=== PATIENT | male | born 1985 | race Caucasian/White ===

== ENCOUNTER 2018-11-26 20:33 | Emergency (ER) | payer OTHER ==
[~2018-11-26] VITALS: Ht 172.7 cm; Wt 82.3 kg
[2018-11-26] MEDS ORDERED: NORCO, ANEXSIA 5/325MG TABLET (HYDROcodone/ACETAMINOPHEN) PO ONE (22:00)
[2018-11-26] MEDS ORDERED: LIDOCAINE 2% MDV 20 ML VIAL SC ONE (22:00)
[2018-11-26] MEDS ORDERED: DERMABOND TOPICAL SKIN ADHESIVE TOP ONE (22:45)
[2018-11-26 23:15] VITALS: BP 131/92
== END 2018-11-26 23:17 | disposition home or self-care (01) ==
LOC: M ED 20:33
DX: S61.011A Laceration without foreign body of right thumb without damage to nail, initial encounter (principal); W26.8XXA Contact with other sharp object(s), not elsewhere classified, initial encounter; Y92.018 Other place in single-family (private) house as the place of occurrence of the external cause; K31.1 Adult hypertrophic pyloric stenosis

== ENCOUNTER → 2019-07-29 | Outpatient (REF) | payer OTHER ==
[~2019-07-29] MED LIST: AMOX500C PO; COLC1TAB13 PO; IBUP40TA PO; PRIL20TA2 PO; RISATAB3 PO
== END ==
LOC: M SFHCLERA 09:34
PROVIDERS: ATTEND Nurse Practitioner Family
DX: J02.9 Acute pharyngitis, unspecified (principal)

== ENCOUNTER → 2019-09-01 | Outpatient (REF) | payer OTHER | LOC: M SFHCLERA 15:03 | PROVIDERS: ATTEND Physician Assistant | DX: R50.9 Fever, unspecified (principal) ==

== ENCOUNTER 2019-09-02 03:00 | Inpatient (IN) | payer OTHER ==
[~2019-09-02] VITALS: Ht 172.7 cm; Wt 83.0 kg
[2019-09-02] MEDS ORDERED: GI COCKTAIL 50ML BTL(HYOSCYAMINE/MAALOX/LIDOCAINE VISCOUS)(1:3:1) PO ONE (03:45)
[2019-09-02] MEDS ORDERED: KETOROLAC 30 MG/ML VIAL (J1885) IV ONE (04:30)
[2019-09-02] MEDS ORDERED: NS 1,000 ML IV ONE (04:30)
[2019-09-02 04:42] LABS: BLOOD UREA NITROGEN 12 MG/DL (7-18); CALCIUM LEVEL 8.8 MG/DL (8.5-10.1); CARBON DIOXIDE LEVEL 23 MEQ/L (21-32); CHLORIDE LEVEL 105 MEQ/L (98-107); CK-MB VALUE MASS 5.6 NG/ML (<3.6); CPK CREATINE PHOSPHOKINASE 102 U/L (39-308); CREATININE FOR GFR 1.09 MG/DL (0.70-1.30); GLOMERULAR FILTRATION RATE > 60.0 (>60); GLUCOSE, FASTING 107 MG/DL (70-100); MB/CK RELATIVE INDEX 5.49 (< OR =4); POTASSIUM SERUM 3.3 MEQ/L (3.5-5.1); SODIUM LEVEL 139 MEQ/L (136-145); TROPONIN I 0.77 NG/ML (< 0.10)
[2019-09-02 04:52] LABS: BASO # 0.1 10^3/uL (0.0-0.2); BASO % 0.6 % (0.0-1.0); EOS # 0.1 10^3/uL (0.0-0.5); EOS % 0.9 % (0.0-3.0); HEMATOCRIT 44.5 % (42.0-52.0); HEMOGLOBIN 16.5 g/dl (13.5-17.5); LYMPH # 3.2 10^3/uL (1.5-5.0); MEAN CORPUSCULAR HEMOGLOBIN 31.7 pg (27.0-33.0); MEAN CORPUSCULAR HGB CONC 37.1 g/dl (32.0-36.5); MEAN CORPUSCULAR VOLUME 85.4 fl (80.0-96.0); MONO % 11.5 % (0.0-5.0); NEUTROPHILS # 4.2 10^3/uL (1.5-8.5); NEUTROPHILS % 48.6 % (36.0-66.0); PLATELET COUNT, AUTOMATED 196 10^3/uL (150-450); RED BLOOD COUNT 5.21 10^6/uL (4.30-6.10); WHITE BLOOD COUNT 8.5 10^3/uL (4.0-10.0)
[2019-09-02 05:14] LABS: C REACTIVE PROTEIN QUANTITATIV 9.56 MG/DL (0.00-0.30)
[2019-09-02 05:24] LABS: ERYTHROCYTE SEDIMENTATION RATE 27 mm/hr (0-15)
[2019-09-02] MEDS ORDERED: ISOVUE-370 76% 100ML VIAL (Q9967) As Ordered ONE (06:02)
--- NOTE | 2019-09-02 06:38 | REPVR ---
PROCEDURE INFORMATION: Exam: CT Angiography Chest With Contrast Exam date and time: 09/02/2019 5:56 AM Clinical history: 33 years old, male; Chest pain; Type not specified; Additional info: Chest pain, eval for pericardial effusion TECHNIQUE: Imaging protocol: Computed tomographic angiography of the chest with intravenous contrast. 3D rendering: MIP reconstructed images were created and reviewed. Radiation optimization: All CT scans at this facility use at least one of these dose optimization techniques: automated exposure control; mA and/or kV adjustment per patient size (includes targeted exams where dose is matched to clinical indication); or iterative reconstruction. Contrast material: ISO; Contrast volume: 75 ml; Contrast route: AC; COMPARISON: CR Chest, 2 view PA, Lat 09/02/2019 4:37 AM FINDINGS: Pulmonary arteries: Normal. No pulmonary emboli. Aorta: Unremarkable. No aortic aneurysm. No aortic dissection. Lungs: Calcified granuloma in the right lower lobe. Mild bibasilar dependent atelectasis. Pleural space: Unremarkable. No pneumothorax. No pleural effusion. Heart: Unremarkable. No cardiomegaly. No pericardial effusion. Lymph nodes: Calcified right hilar lymph nodes. Bones/joints: Unremarkable. No acute fracture. Soft tissues: Unremarkable. IMPRESSION: No acute pulmonary embolic disease or thoracic aortic dissection. No significant pericardial effusion. Evidence of prior granulomatous disease. Electronically signed by: Steve Meng On 09/02/2019 06:37:57 AM
--- NOTE | 2019-09-02 07:31 | ECGEPIP ---
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
--- NOTE | 2019-09-02 08:21 | REP ---
Chest x-ray: Two views. History: Chest pain . Comparison study: No comparison study. . Findings: The lungs are well inflated and free of infiltrate. The pleural angles are sharp. The heart size is normal. Pulmonary vasculature is not increased. No significant bony abnormality is seen. Monitoring electrodes are seen. Impression: Negative chest x-ray. Electronically Signed by Armando Thayer MD 09/02/2019 08:13 A
[2019-09-02 09:21] LABS: CK-MB VALUE MASS 44.4 NG/ML (<3.6); MB/CK RELATIVE INDEX 10.52 (< OR =4); TROPONIN I 12.1 NG/ML (< 0.10)
--- NOTE | 2019-09-02 14:29 | HPE ---
DATE OF ADMISSION: 09/02/2019 PRIMARY CARE PHYSICIAN: [facility] ATTENDING PHYSICIAN: Hospitalist Group CHIEF COMPLAINT: Chest pain, presumed pericardial/myocarditis. HISTORY: Glen Cuadra is a 33-year-old in usually very good health. He had an upper respiratory infection (URI) and went to [facility] yesterday for sore throat. He had a negative Strep screen and a diagnosis of viral illness. Today, he had pleuritic chest discomfort in his anterior chest that was well localized to the right sternal border that changed with body position. He came to the emergency room. CT angiogram was negative for pulmonary embolism or dissection. Electrocardiogram shows repolarization in multiple leads. He received a dose of Toradol with resolution of his pain and is being admitted with a presumptive diagnosis of pericarditis with suspected myocarditis. His CK and his Troponin took a significant increase over a period of time. The Troponin was 0.7 on arrival to the emergency room (ER) and is up to 12.1 now with a rise in the CK. The case has been discussed between the emergency room physician and Dr. Guerrero who feels the patient should be observed overnight with serial enzymes, echocardiogram and cardiology consultation for presumed pericardial/myocarditis. We do not think this is ischemic related. PAST MEDICAL HISTORY: Essentially benign. He has seasonal allergies. SOCIAL HISTORY: He is . Nonsmoker. No alcohol. 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 FAMILY HISTORY: Negative for any cardiovascular disease. MEDICATIONS: Over the counter allergy medications. ALLERGIES: None to any medications. REVIEW OF SYSTEMS: No exertional chest pain, palpitations, fever. He had a sore throat and head cold yesterday. No epistaxis, rectal bleeding, or urinary bleeding. PHYSICAL EXAMINATION: Vital signs per flow sheet. General Appearance: He is alert, conversant, in no distress. Pupils equal, round and equal. Pharynx benign. Neck no masses. Lungs: Clear. Heart: Regular rhythm. No rub. No murmur. Abdomen: Soft. Nontender. No masses. No peripheral edema. Skin: No rash. joints. CT angiogram unremarkable. Pericardium was normal. LABS: Electrolytes with sodium 139, potassium 3.3, BUN 12, creatinine 0.1. Initial Troponin was 0.7 and repeat five hours later was 12.1. C-reactive protein was 9.5. CK was normal on admission and 422 on repeat. CBC unremarkable. Sed rate 27. Echocardiogram is pending. EKGs showed ST segment elevation in inferior and anterolateral leads. The earlier report was repolarization versus pericardial change. IMPRESSION: Suspected pericardial/myocarditis. He has a rise in his Troponin and CPK. His pain does not seem ischemic. It is well localized, nonexertional and was relieved with Toradol. In addition, he has a significantly elevated C-reactive protein and a history of a recent viral sounding respiratory illness for which he sought care yesterday. He will be admitted to the progressive care unit (PCU). Serial enzymes have been ordered. Echocardiogram has already been done. Dr. Guerrero and I discussed the case. He will see the patient in consultation. I will begin aspirin 325 mg daily and Toradol as needed for pain. I suspect he will probably be able to be discharged tomorrow.
[2019-09-02 14:42] VITALS: BP 108/62
[2019-09-02] MEDS ORDERED: POTASSIUM CHLORIDE 10 MEQ SR TABLET PO ONE (16:00)
[2019-09-02 16:06] VITALS: BP 101/63
[2019-09-02 16:53] LABS: CK-MB VALUE MASS 28.6 NG/ML (<3.6); MB/CK RELATIVE INDEX 8.77 (< OR =4); TROPONIN I 6.66 NG/ML (< 0.10)
[2019-09-02] MEDS ORDERED: ASPIRIN 81 MG CHEW TABLET PO ONE (18:00)
[2019-09-02] MEDS: KETOROLAC 30 MG/ML VIAL (J1885) IV PRN (18:16)
[2019-09-02] MEDS ORDERED: MORPHINE 4 MG/ML 1ML VIAL/SYRINGE (J2270) As Ordered ONE (18:43)
[2019-09-02] MEDS ORDERED: MORPHINE 4 MG/ML 1ML VIAL/SYRINGE (J2270) IV ONE (18:45)
[2019-09-02 19:26] VITALS: BP 164/118
[2019-09-02] MEDS ORDERED: MORPHINE 4 MG/ML 1ML VIAL/SYRINGE (J2270) IV PRN (19:30)
[2019-09-02 19:57] LABS: CK-MB VALUE MASS 60.6 NG/ML (<3.6); MB/CK RELATIVE INDEX 10.27 (< OR =4); TROPONIN I 15.5 NG/ML (< 0.10)
[2019-09-02] MEDS: PANTOPRAZOLE 40MG TAB (PROTONIX) PO SCH (19:59)
[2019-09-02 20:00] VITALS: BP 153/96
--- NOTE | 2019-09-02 21:09 | ECHO ---
DATE OF PROCEDURE: 09/02/2019 REFERRING PHYSICIAN: Gissell Hyde MD INDICATION: Chest pain, elevated troponin. HEIGHT: 173 cm WEIGHT: 85 kg DIMENSIONS: IVS: 1.1 LV: 4.7 LVPW: 1.0 LA: 3.2 Aorta: 3.1 IVC: 1.8 Mitral E wave velocity: 72, A wave: 57 E prime septal: 9.5 E prime lateral: 11.7 FINDINGS The study is of good technical quality. There are excellent parasternal views but somewhat less favorable apical views. Left ventricle is of normal size and systolic function with estimated ejection fraction (EF) 60-65%. I do not appreciate any segmental wall motion abnormality. Right ventricle is also normal size and systolic function. Both atria are normal. All four cardiac valves were reasonably well seen and appear normal. No pericardial effusion is noted. Inferior vena cava is normal size. Aortic root, aortic arch and visualized segment of abdominal aorta all appear normal. Doppler interrogation reveals no significant valvular disease. Mitral inflow pattern and tissue Doppler imaging of mitral annulus reveals normal diastolic function. CONCLUSION 1. Study is of good technical quality. 2. Normal LV size, systolic and diastolic function. 3. No valvular disease. 4. No pericardial effusion. 5. Likely normal central venous pressure. 6. Unable to estimate pulmonary artery pressure but no signs to suggest pulmonary hypertension. 7. Essentially normal echocardiogram. COMMENT Subacute bacterial endocarditis (SBE) prophylaxis is not recommended.
--- NOTE | 2019-09-02 22:20 | CR ---
DATE OF CONSULTATION: 09/02/2019 REFERRING PHYSICIAN: Leo Beasley MD I was asked by Dr. Beasley to see Mr. Cuadra regarding chest pain and elevated troponin. The patient reports that he started feeling sick about 5 days ago. He had upper respiratory sign infection, was a little nauseated and had mild chest discomfort. He did not pay particularly much attention, but then over the next few days his condition did not improve and last night he started having fairly severe chest discomfort that was intermittent in nature, but it was retrosternal without obvious radiation. He eventually came to our emergency room last night. His vital signs were relatively unremarkable and his initial ECG did not reveal any obvious abnormalities. If anything there was minimal diffuse ST-segment elevation, more like an early repolarization pattern across the board. He was given single dose of Toradol that led to improvement of his chest discomfort, even though not a complete resolution. But his laboratories reveal mildly elevated troponin at 0.77. It was drawn at 03:15 last night. His CK-MB was 5.60 with relative index being elevated as well. His CRP was 9.6. He was watched in the emergency room and then followup troponin came back at 12.1 at 8 o'clock this morning. An echocardiogram was performed that I reviewed recently and revealed normal left ventricular systolic function without any valvular disease and without any pericardial effusion. He was then moved to hospital for further observation and management and but approximately 6 o'clock this afternoon his pain markedly deteriorated and I was called urgently by nursing staff because his pain became severe. It was retrosternal and epigastric, not particularly aggravated by taking deep breaths or he said that if anything the expiration seems to make it worse. When I saw him he was rather panicky, but otherwise did not have any visible dyspnea or other signs of respiratory distress. The patient is otherwise healthy. He does not take any medications and he does not have any past medical history. He specifically denies any history of high cholesterol, high blood pressure. MEDICATIONS: None. Allergies: POLLEN and RED FOOD COLORING. SOCIAL HISTORY: The patient is , does not have any biological children. He is an construction electrician. He never smoked. He denies any history of drug use, minimal alcohol consumption. FAMILY HISTORY: He reports is dominantly positive for narcotic use and he is paranoid about possibility of getting addicted. REVIEW OF SYSTEMS: Besides history of history of present illness is negative. He specifically denies any history of bleeding problems. He denies any history of syncope, shortness of breath. At his baseline he is very active and in very good physical shape. PHYSICAL EXAMINATION Mr. Cuadra is a young man who appears to be in good physical shape. He is visibly anxious, but in no respiratory distress. The last set of vital signs reveal blood pressure 144/94, heart rate in 70s. Saturation is 98% on 2 liters of oxygen by nasal cannula. His JVP is not elevated. There are no carotid bruit. Lungs are clear with good air movement. Heart: Exam reveals regular rhythm. No gallop, rub or murmur is appreciated. Abdomen is soft without tenderness or rebound tenderness. Extremities are free of edema. Peripheral pulses are excellent quality. Neurologically besides anxiety is intact. LABORATORY This morning at 3:15, basic metabolic panel was normal, but for potassium 3.3, cardiac enzymes as per HPI. The last sets of cardiac enzymes at 4:00 reveal troponin 6.66, CK-MB 28 and total CK 326, D-dimer was quite positive. In emergency room he had a chest x-ray which was unremarkable and CT angiography which was also unremarkable. An echocardiogram was normal as per HPI. There are three ECGs on the chart. The first one is at 3:12 that besides early repolarization is otherwise unremarkable. The second one is at 08:01 which is similar but has some ST segment elevation that are diffuse and the last one from 18:[address] segment elevations in all leads with the exception of AVR. There are subtle SD segment depressions diffusely and SD elevation in AVR. I believe that overall it is pretty classic EKG for pericarditis. ASSESSMENT/PLAN Mr. Cuadra is a 33-year-old man who presents with chest discomfort that follows a few days of symptoms of viral illness. He has elevated inflammatory markers, rather diffuse ST-segment elevations on ECG with associated SD segment depressions and elevated troponin. He has a normal echocardiogram. I do believe that the story is indeed very supportive of perimyocarditis. I do think that he needs to be monitored in the hospital probably at least two more days. I would recommend to continue administration of Toradol with additional morphine as needed for pain control. I will obtain serial troponin and serial EKGs. If there should be a change in his condition then he can always be reevaluated. I tried to reassure the patient and his as much as I was able to. Dr. Herrera will cover this weekend and I signed the patient off to him. TALYA
--- NOTE | 2019-09-02 23:33 | ECGEPIP ---
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 More ST abnormality now noted Electronically Signed on 09-02-2019 23:33:25 EDT by Darrell Salter
[2019-09-03] VITALS: BP 106/67
[2019-09-03] MEDS: KETOROLAC 30 MG/ML VIAL (J1885) IV PRN ×2 (00:08→05:45)
[2019-09-03 04:00] VITALS: BP 110/67
[2019-09-03 07:27] LABS: BASO % 0.6 % (0.0-1.0); EOS # 0.1 10^3/uL (0.0-0.5); EOS % 1.6 % (0.0-3.0); LYMPH % 30.3 % (24.0-44.0); MEAN CORPUSCULAR HEMOGLOBIN 31.8 pg (27.0-33.0); MEAN CORPUSCULAR HGB CONC 36.4 g/dl (32.0-36.5); MEAN CORPUSCULAR VOLUME 87.2 fl (80.0-96.0); MONO # 0.6 10^3/uL (0.0-0.8); MONO % 9.2 % (0.0-5.0); NEUTROPHILS # 3.7 10^3/uL (1.5-8.5); PLATELET COUNT, AUTOMATED 176 10^3/uL (150-450); RED BLOOD COUNT 4.47 10^6/uL (4.30-6.10); WHITE BLOOD COUNT 6.4 10^3/uL (4.0-10.0)
[2019-09-03 07:41] LABS: BLOOD UREA NITROGEN 10 MG/DL (7-18); CALCIUM LEVEL 8.7 MG/DL (8.5-10.1); CARBON DIOXIDE LEVEL 28 MEQ/L (21-32); CHLORIDE LEVEL 109 MEQ/L (98-107); CK-MB VALUE MASS 83.4 NG/ML (<3.6); CPK CREATINE PHOSPHOKINASE 672 U/L (39-308); CREATININE FOR GFR 0.79 MG/DL (0.70-1.30); GLOMERULAR FILTRATION RATE > 60.0 (>60); GLUCOSE, FASTING 111 MG/DL (70-100); MB/CK RELATIVE INDEX 12.41 (< OR =4); POTASSIUM SERUM 4.3 MEQ/L (3.5-5.1); SODIUM LEVEL 142 MEQ/L (136-145)
[2019-09-03 07:43] LABS: HEMOGLOBIN 14.2 g/dl (13.5-17.5)
[2019-09-03 08:00] VITALS: BP 115/74
[2019-09-03 08:01] LABS: ALBUMIN 3.3 GM/DL (3.2-5.2); ALT/SGPT 53 U/L (12-78); BILIRUBIN,TOTAL 0.4 MG/DL (0.2-1.0); TOTAL PROTEIN 6.8 GM/DL (6.4-8.2)
[2019-09-03] MEDS ORDERED: AUGMENTIN 500 MG TAB PO SCH (09:00)
[2019-09-03] MEDS ORDERED: ENOXAPARIN 40 MG/0.4 ML SYRINGE (J1650) SC SCH (09:00)
[2019-09-03] MEDS ORDERED: AMOXICILLIN 500 MG CAP PO SCH (09:00)
[2019-09-03] MEDS ORDERED: ASPIRIN 81 MG ENTERIC TAB PO SCH (09:00)
[2019-09-03 11:44] VITALS: BP 113/75
[2019-09-03 16:04] VITALS: BP 135/81
--- NOTE | 2019-09-03 16:11 | ECGEPIP ---
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 Diffuse ST elevation consistent with pericarditis Elevation has decreased from 09/02/19. Electronically Signed on 09-03-2019 16:10:57 EDT by Reji Herrera
[2019-09-03 17:28] LABS: CK-MB VALUE MASS 33.3 NG/ML (<3.6); MB/CK RELATIVE INDEX 10.78 (< OR =4); TROPONIN I 11.5 NG/ML (< 0.10)
--- NOTE | 2019-09-03 17:30 | IPNPDOC ---
Date Seen The patient was seen on 09/03/19. Progress Note SUBJECTIVE: Glen was seen and examined this morning while lying upright in bed. He reports feeling okay now, but had chest pressure at 5:45 AM this morning that felt as though a "dog was sitting on [his] chest." He also states that yesterday afternoon he had a very sharp increase in his pain, saying it was the worst he's ever felt. With each exacerbation. Toradol has helped diminish his pain. He also endorses a cough that he ascribes to his chronic postnasal drip. He is eating and drinking without any issues. He ambulates under his own power to use the toilet. He remains on telemetry. He denies fever, chills, chest pain, chest pressure, palpitations, shortness of breath, abdominal pain, feeling nauseated, or vomiting at this time. OBJECTIVE PHYSICAL EXAMINATION: VITAL SIGNS: Please see below. GENERAL: Glen is a pleasant, cooperative, and interactive man who is resting comfortably in bed at time of exam. He responds to questions and commands properly. He does not appear to be in any acute distress at this time. HEENT: Normocephalic, atraumatic. Pupils are equal, round, reactive to light and accommodation. Extraocular motion is intact. Nonicteric sclera. Trachea is midline. CARDIOVASCULAR: Regular rate and rhythm. S1, S2 normal. When patient was asked to sit upright and leaning forward, no friction rub was appreciated on auscultation, nor were any clicks or murmurs appreciated. 2+ radial and dorsalis pedis pulses palpated bilaterally. No JVD. No lower extremity edema. RESPIRATORY: Good respiratory effort. Clear vesicular breath sounds anteriorly and posteriorly. No wheezes or rhonchi were appreciated. Symmetric chest expansion. No accessory muscle use or retractions were visualized with respiration. ABDOMINAL: Soft, nontender to palpation in all abdominal quadrants. Nondistended. No tympany to percussion. No masses appreciated on palpation. No hepatomegaly on palpation. Normoactive bowel sounds present. EXTREMITIES: 5 out of 5 muscle strength testing upper extremities. Motor shows bilaterally. No lower extremity edema. No clubbing or cyanosis. NEUROLOGICAL: Patient is awake, alert and oriented 3. He maintains good eye contact. He responds appropriate to questions commands. Sensation to light touch is intact upper extremities lower show any bilaterally PSYCHOLOGICAL: Appropriate mood, appropriate affect LABORATORY DATA, IMAGING STUDIES, MICROBIOLOGY: Please see below. Echocardiogram: (09/02) Study is of good technical quality. Normal LV size, systolic and diastolic function. No valvular disease. No pericardial effusion. Likely normal central venous pressure. Unable to estimate pulmonary artery pressure but no signs to suggest pulmonary hypertension. Essentially normal echocardiogram. Subacute bacterial endocarditis (SBE) prophylaxis is not recommended. ASSESSMENT AND PLAN: This is a relatively healthy 33-year-old male with no pertinent past medical history who presented to urgent care yesterday in [facility] after 5 days of flu-like symptoms with chills, sore throat, and dizzy spells and acute onset of anterior chest pain with localized nonexertional pleuritic chest pain. Initial chest x-ray was unremarkable and CT angiography of the chest showed no acute pulmonary embolism or thoracic aortic dissection. EKGs showed diffuse ST segment elevation in inferior and anterolateral leads. Echocardiogram performed on 09/02 was essentially normal. Patient was admitted to the progressive care unit, placed on telemetry, and cardiology was consulted. Overnight troponins and EKGs were ordered, and Toradol was ordered for pain. 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 Toradol has continued to bring troponins are increasing with the most recent 22.7. Repeat EKGs continued to show ST segment elevation diffusely with mild decrease in level of ST elevation on EKG from morning of 09/03 versus previous study from evening of 09/02. #Perimyocarditis -Patient has had consistent ST segment elevations diffusely on EKGs since presentation. -Patient has also had increasing elevated troponins and total creatinine kinase on repeat labs. -Patient taking daily 81 mg aspirin -Patient had upper respiratory infection over the past week and had a strep g roup G positive test at [facility] urgent care on 09/02. -Etiology is still unknown as it could be viral vs bacterial etiology vs unknown. Strep group G pharyngitis, could be cause, although unlikely, or could be colonization with viral uri as cause. -Antibiotic coverage ordered for strep group G pharyngitis. Amoxicillin was contraindicated for patient due to his red dye allergy, therefore, Augmentin was chosen. -Santosh bar virus and Lyme disease screen were ordered to assess for possible etiology -Continue with Toradol for pain with added morphine -Continue with telemetry -Repeat cardiac panel/troponins ordered. If chest pain should worsen and troponins continue to rise, repeat ekg warranted -Cardiology is also following with patient. -Patient will need repeat echocardiogram as outpatient to follow-up and assess for any pathology -Flu vaccine ordered for patient on 09/04 #Streptococcus group G pharyngitis -Patient had positive strep group G result from 09/02 strep test at [facility] -Patient is on day 1 of Augmentin antibiotic coverage. Amoxicillin was contraindicated due to patient's red dye allergy. #DVT prophylaxis: Daily 40 mg Lovenox sc #Stress ulcer prophylaxis: Daily 40 mg Protonix PO hs DISPOSITION: Patient remains in progressive care unit with telemetry monitoring. He has had no reported chest pain or chest pressure since very early this morning. Repeat cardiac panel/troponins ordered for this afternoon. If troponins continue to increase, and chest pain becomes acutely severe, repeat EKG warranted. If patient continues to improve without acute chest pain/pressure e pisodes, and plateaued/decreased troponins, discharge possible either tomorrow or 09/05. I saw and evaluated the patient. I agree with the findings and plan of care as documented in the above note VS, I&O, 24H, Fishbone Vital Signs/I&O Vital Signs Date Time Temp Pulse Resp B/P (MAP) Pulse Ox O2 Delivery O2 Flow Rate FiO2 09/03/19 16:04 98.1 91 20 135/81 (99) 98 09/03/19 00:00 Room Air 09/02/19 20:00 1.0 I&O- Last 24 Hours up to 6 AM 09/03/19 06:00 Intake Total 800 ml Output Total 400 ml Balance 400 ml Laboratory Data 24H LABS Laboratory Tests 2 09/02/19 19:20: Total Creatine Kinase 590#H, Creatine Kinase MB 60.6H, Creatine Kinase MB Relative Index 10.27H, Troponin I 15.50#*H 09/03/19 06:59: Total Creatine Kinase 672H, Creatine Kinase MB 83.4H, Creatine Kinase MB Relati ve Index 12.41H, Troponin I 22.70#*H, Immature Granulocyte % (Auto) 0.3, White Blood Count 6.4, Red Blood Count 4.47, Hemoglobin 14.2#, Hematocrit 39.0L, Mean Corpuscular Volume 87.2, Mean Corpuscular Hemoglobin 31.8, Mean Corpuscular Hemoglobin Concent 36.4, Red Cell Distribution Width 11.7, Platelet Count 176, Neutrophils (%) (Auto) 58.0, Lymphocytes (%) (Auto) 30.3, Monocytes (%) (Auto) 9.2H, Eosinophils (%) (Auto) 1.6, Basophils (%) (Auto) 0.6, Neutrophils # (Auto) 3.7, Lymphocytes # (Auto) 2.0, Monocytes # (Auto) 0.6, Eosinophils # (Auto) 0.1, Basophils # (Auto) 0.0, Nucleated Red Blood Cells % (auto) 0.0, Anion Gap 5L, Glomerular Filtration Rate > 60.0, Blood Urea Nitrogen 10, Creatinine 0.79, Sodium Level 142, Potassium Level 4.3#, Chloride Level 109H, Carbon Dioxide Level 28, Calcium Level 8.7, Aspartate Amino Transf (AST/SGOT) 100H, Alanine Aminotransferase (ALT/SGPT) 53, Alkaline Phosphatase 56, Total Bilirubin 0.4, Total Protein 6.8, Albumin 3.3, Albumin/Globulin Ratio 0.94L 09/03/19 07:28: CBC/BMP Laboratory Tests 09/03/19 06:59 Red Blood Count 4.47, Mean Corpuscular Volume 87.2, Mean Corpuscular Hemoglobin 31.8, Mean Corpuscular Hemoglobin Concent 36.4, Red Cell Distribution Width 11.7, Neutrophils (%) (Auto) 58.0, Lymphocytes (%) (Auto) 30.3, Monocytes (%) (Auto) 9.2 H, Eosinophils (%) (Auto) 1.6, Basophils (%) (Auto) 0.6, Neutrophils # (Auto) 3.7, Lymphocytes # (Auto) 2.0, Monocytes # (Auto) 0.6, Eosinophils # (Auto) 0.1, Basophils # (Auto) 0.0, Calcium Level 8.7, Aspartate Amino Transf (AST/SGOT) 100 H, Alanine Aminotransferase (ALT/SGPT) 53, Total Creatine Kinase 672 H, Alkaline Phosphatase 56, Total Bilirubin 0.4, Total Protein 6.8, Albumin 3.3 Microbiology Microbiology 09/03/19 Respiratory Virus Panel (PCR) ([facility]) - Final, Complete DAKOTA TAVERAS PGY-1 Sep 03, 2019 17:29 MARY ALICE NAIR MD Sep 04, 2019 11:59
[2019-09-03] MEDS ORDERED: COLCHICINE 0.6 MG TAB PO ONE (19:00)
[2019-09-03 20:00] VITALS: BP 114/80
[2019-09-03] MEDS: PANTOPRAZOLE 40MG TAB (PROTONIX) PO SCH (20:00)
[2019-09-03] MEDS: IBUPROFEN 400 MG TAB PO SCH (20:01)
[2019-09-04] VITALS: BP 117/69
[2019-09-04 04:00] VITALS: BP 119/73
[2019-09-04 07:46] VITALS: BP 122/82
--- NOTE | 2019-09-04 07:56 | ECGEPIP ---
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
--- NOTE | 2019-09-04 08:07 | IPNPDOC ---
Date Seen The patient was seen on 09/04/19. Progress Note SUBJECTIVE: Patient tells me that this morning he has no chest pain or pressure whatsoever. He denies any shortness of breath fevers chills nausea vomiting or diarrhea. OBJECTIVE PHYSICAL EXAMINATION: VITAL SIGNS: Please see below. GENERAL: Patient sits up too great and he has entered the room he is awake alert oriented 3 attempted by his he does not appear to be in any acute distress whatsoever. HEENT: Normocephalic, atraumatic. Pupils are equal, round, reactive to light and accommodation. He has moist mucous membranes no elevation CVP CARDIOVASCULAR: Regular rate and rhythm. S1, S2 normal. no friction rub was appreciated on auscultation, nor were any clicks or murmurs appreciated. RESPIRATORY: Good respiratory effort. Clear vesicular breath sounds anteriorly and posteriorly. ABDOMINAL: Soft, nontender to palpation in all abdominal quadrants. Nondistended. EXTREMITIES: 5 out of 5 muscle strength testing upper extremities. Motor shows bilaterally. No lower extremity edema. No clubbing or cyanosis. NEUROLOGICAL: Cranial nerves grossly intact, no focal deficits PSYCHOLOGICAL: Appropriate mood, appropriate affect LABORATORY DATA, IMAGING STUDIES, MICROBIOLOGY: Please see below. Echocardiogram: (09/02) Study is of good technical quality. Normal LV size, systolic and diastolic function. No valvular disease. No pericardial effusion. Likely normal central venous pressure. Unable to estimate pulmonary artery pressure but no signs to suggest pulmonary hypertension. Essentially normal echocardiogram. Subacute bacterial endocarditis (SBE) prophylaxis is not recommended. ASSESSMENT AND PLAN: This is a relatively healthy 33-year-old male with pericarditis 1. Pericarditis: Thus far no evidence of congestive heart failure to be concerning for more serious myocarditis. Troponin appears to be downtrending this a.m. as his pain is resolving as well. Agree with cold seen and ibuprofen. He is also started on Protonix while on the ibuprofen. Given the degree of his pericarditis recommend close outpatient follow-up with cardiology. On September 28 did have a group G Streptococcus swab which was positive for heavy growth. My suspicion is that this infection is not likely to be causing any acute rheumatic fever or myocarditis. However given the degree of troponin his presenting throat symptoms I am treating him with amoxicillin 500 mg by mouth twice a day. He has a red dye allergy documented which is indigestion. We'll provide him 2 doses here and monitor for any symptoms I suspect that this is not a true allergy. If he does have some transition him to Augmentin should he not have symptoms could consider weaning this allergy did discuss with pharmacy. Seems more likely this is secondary to a viral infection. Restrictive PCR panel negative, Lyme Santosh- Burkett mycoplasma currently pending. This for the patient has not had any events on telemetry DVT prophylaxis: Ambulation Disposition: Likely home tomorrow VS, I&O, 24H, Fishbone Vital Signs/I&O Vital Signs Date Time Temp Pulse Resp B/P (MAP) Pulse Ox O2 Delivery O2 Flow Rate FiO2 09/04/19 04:00 98.3 83 18 119/73 (88) 99 09/03/19 00:00 Room Air 09/02/19 20:00 1.0 I&O- Last 24 Hours up to 6 AM 09/04/19 06:00 Intake Total 1420 ml Output Total 1225 ml Balance 195 ml Laboratory Data 24H LABS Laboratory Tests 2 09/03/19 16:41: Total Creatine Kinase 309H, Creatine Kinase MB 33.3H, Creatine Kinase MB Relative Index 10.78H, Troponin I 11.50#*H Microbiology Microbiology 09/03/19 Respiratory Virus Panel (PCR) ([facility]) - Final, Complete MARY ALICE NAIR MD Sep 04, 2019 08:07
[2019-09-04] MEDS: LACTOBACILLUS ACIDOPHILUS CAP (BACID) PO SCH ×2 (08:55→17:47)
[2019-09-04] MEDS: COLCHICINE 0.6 MG TAB PO SCH ×2 (08:55→20:35)
[2019-09-04] MEDS: IBUPROFEN 400 MG TAB PO SCH ×4 (08:56→20:35)
[2019-09-04] MEDS ORDERED: INFLUENZA QUADRIVALENT PF VACCINE 0.5ML SYRINGE (90686) IM ONE (09:00)
[2019-09-04] MEDS: AMOXICILLIN 500 MG CAP PO SCH ×2 (10:32→20:34)
--- NOTE | 2019-09-04 10:55 | IPN ---
CARDIOLOGY PROGRESS NOTE COVERING FOR DR. DUGGAN. DATE OF SERVICE: 09/03/2019 SUBJECTIVE: The patient at this time claims to feel no further chest discomfort. He has a mild sore throat believed to have been triggered by sleeping with his mouth open. Has no GI complaints. No cough or sputum. No lightheadedness. Appears to be tolerating his medications without adverse effect. OBJECTIVE: Pleasant male of medium body build presently sitting up and eating pizza. No pallor or cyanosis. Heart rate 88 beats per minute and regular, blood pressure 130/80 supine, respiratory rate 18, O2 saturation 98% on room air. Afebrile. Normal oral moisture. Trachea midline. Neck veins were not elevated. Normal chest configuration and chest expansion. Good air entry over both lung cespedes with no abnormal pulmonary adventitious sounds. Normal-appearing apex. S1 and S2. No current audible pericardial rub. No pedal edema. polygraph technician: This has shown consistent sinus rhythm without arrhythmia. EKG: Study today showed sinus rhythm at 78 beats per minute. Continues to have fairly diffuse ST elevation that is actually less marked from last evening. Laboratory data: Blood work today shows normal complete blood count and his respiratory screen was negative. Complete medical profile today was normal. Serial CPK values reached maximum of 672 earlier today, is down to 309 this evening. His Troponin I level also reached a maximum of 22.7 earlier this morning but is down to 11.5 this afternoon. Serologies for Lyme disease and mycoplasma is pending. IMPRESSION / PLAN: Acute viral pericarditis: According to the patient's history, fairly abrupt onset illness without fever, white blood cell count, chills, clear chest x-ray, the most likely etiology of this process was in fact viral. He is not a woodsman, not exposed to ticks, certainly not in recent past. Strep screen negative for Strep group B. Started on Augmentin for reported heavy growth strep group G pharyngitis. (Reaction to red color dye is heartburn. No rash, wheezing or hypotension). The standard therapy for pericarditis is not Toradol IV PRN, but regular nonsteroidal anti-inflammatory therapy such as ibuprofen with dosing 400 mg four times a day, decreasing by 200 mg every third day as long as his pain does not recur. Colchicine 0.6 mg twice daily for at least 1 month is also strongly advised as this agent has been proven to accelerate relief of inflammation, and prevent long-term recrudescences as well as potential complications associated with pericardial inflammation. Undoubtedly with nonsteroidal anti-inflammatory therapy and colchicine will need GI protection with proton pump inhibitor therapy. Augmentin has been discontinued. Primary has started Amoxicillin. Lovenox and ASA have also been discontinued as he is not on bed rest and this is clearly not an infarction. Should avoid more strenuous activity for at least the next month. EKG monitoring is prudent for the first 72 hours of acute inflammation and associated epimyocarditis. At this point, I have written for transfer to a telemetry unit. TALYA
[2019-09-04 11:36] VITALS: BP 114/74
--- NOTE | 2019-09-04 15:13 | IPN ---
DATE: 09/04/2019 CARDIOLOGY PROGRESS NOTE Covering for Dr. Guerrero SUBJECTIVE: The patient has been up in his room without any further chest discomfort. Dry throat has also apparently resolved. Tolerating his medications without adverse effect. OBJECTIVE: Pleasant, bright, mesomorphic male lying comfortably flat. Heart rate 76 beats per minute (bpm) and regular, blood pressure 114/74, oxygen (O2) saturation 100% on room air. Afebrile. environmental monitoring specialist: This has shown consistent sinus rhythm without significant ectopic activity. IMPRESSION/PLAN: Acute pericarditis: I spoke with Dr. Vidal earlier today and apparently there is a report on the chart documenting heavy growth of group G Streptococcus. This organism can be found in the normal ree of his mouth but with his pharyngitis, it is prudent to briefly treat him with amoxicillin as Dr. Vidal had advised. This organism should melt away and require no more than perhaps 5 days of treatment. Hopefully this will not interfere with his other medications. So far has no adverse gastrointestinal (GI) reaction. A followup EKG and troponin I will be obtained in the morning, and I am cautiously optimistic this will show a significant further improvement such that he will be able to be discharged. I have discussed the need for avoiding more strenuous activities for the next month. He understands the importance of regular gradually tapering nonsteroidal anti-inflammatory therapy, ibuprofen by 200 mg every third day as long as his symptoms do not recur. We would recommend continuing colchicine 0.6 mg twice a day or 0.6 mg daily should diarrhea occur, for approximately [address] Guerrero will be returning tomorrow morning.
[2019-09-04 16:24] VITALS: BP 116/73
[2019-09-04 20:00] VITALS: BP 122/69
[2019-09-04] MEDS: PANTOPRAZOLE 40MG TAB (PROTONIX) PO SCH (20:35)
[2019-09-05] VITALS: BP 118/70
[2019-09-05 04:00] VITALS: BP 115/77
[2019-09-05 05:45] LABS: CK-MB VALUE MASS 2.4 NG/ML (<3.6); MB/CK RELATIVE INDEX 4.14 (< OR =4); TROPONIN I 2.76 NG/ML (< 0.10)
[2019-09-05 08:00] VITALS: BP 120/84
--- NOTE | 2019-09-05 08:16 | IPN ---
DATE: 09/05/2019 Mr. Cuadra has been feeling well. He has not had any recurrent chest discomfort since Thursday. He also denies any palpitations or shortness of breath. His troponin has trended down favorably and is down to 2.76 today. He peaked at 22 on September 03. ECG this morning reveals sinus rhythm. There are still some minimal residual ST-segment elevations but the trend is clearly in favorable direction. No Q-waves. By physical exam blood pressure 115/77, heart rate has been in 70s and 80s. He is afebrile. Saturation is 100% on room air. His jugular venous pulse (JVP) is not elevated. No carotid bruit. Lungs are clear. Good air movement. Heart exam reveals regular rhythm. I still do not appreciate any gallop or rub. Abdomen is soft and nontender. Extremities are free of edema and peripheral pulses are of good quality. Laboratories were not drawn today with the exception of troponin. ECG as above. ASSESSMENT AND PLAN: Mr. Cuadra is a 33-year-old man without significant past medical history who presented with rather severe chest discomfort and had evidence for pericarditis based on ST-segment elevations on ECG that had typical trend associated with pericardial disease. He had significant troponin elevation so component of myocarditis was present. There have not been any arrhythmias on telemetry and he tolerated ambulation well. At this point I believe he can be discharged home. I would continue nonsteroidal antiarrhythmic medications and colchicine in current doses. I intend to see him in followup next week and at that point I think we will probably clear him back for work. I told him to avoid any strenuous exertion or heavy lifting in the interim.
[2019-09-05] MEDS ORDERED: COLC1TAB13 PO (09:39)
[2019-09-05] MEDS ORDERED: RISATAB3 PO (09:39)
[2019-09-05] MEDS ORDERED: IBUP40TA PO (09:39)
[2019-09-05] MEDS ORDERED: PRIL20TA2 PO (09:39)
[2019-09-05] MEDS ORDERED: AMOX500C PO (09:39)
[2019-09-05] MEDS: IBUPROFEN 400 MG TAB PO SCH (10:31)
[2019-09-05] MEDS: COLCHICINE 0.6 MG TAB PO SCH (10:31)
[2019-09-05] MEDS: AMOXICILLIN 500 MG CAP PO SCH (10:31)
[2019-09-05] MEDS: LACTOBACILLUS ACIDOPHILUS CAP (BACID) PO SCH (10:32)
--- NOTE | 2019-09-05 11:50 | DS.PDOC ---
Discharge Summary General Date of Admission Sep 03, 2019 at 13:26 Date of Discharge 09/05/19 Attending Physician: MARY ALICE NAIR MD Specialist/Consultants Involve: Dillon Guerrero MD Discharge Summary PROCEDURES PERFORMED DURING STAY: None. ADMITTING DIAGNOSES: 1. Myopericarditis DISCHARGE DIAGNOSES: 1. Myopericarditis COMPLICATIONS/CHIEF COMPLAINT: Pericarditis. HISTORY OF PRESENT ILLNESS: Patient is a 33-year-old male who presented to the [facility] emergency department with complaint of chest pain he describes as like a laminator printed circuit boards. Patient stated that approximately 5 days ago he developed a upper respiratory tract infection and had presented to an urgent care. He stated that since being seen at the urgent care, his upper respiratory symptoms have improved however, he developed nonexertional pleuritic chest pain that he describes as a laminator printed circuit boards around his heart. He stated the chest pain did not improve with leaning forward or leaning back and was persistent. Patient subsequently presented to the [facility] emergency department where he received a chest x-ray which was unremarkable as well as a CT angiog jaycob, which showed no acute pulmonary embolism or thoracic aortic dissection. He received an EKG which demonstrated diffuse ST segment elevations in the inferior and anterolateral leads as well as a stat echocardiogram which was essentially normal. On presentation to the emergency department, he received a cardiac marker panel with positive troponin elevation. Hospital service was consulted and the patient was admitted for further evaluation and management Patient was admitted to the intensive care unit for telemetry monitoring as well as serial troponins. Patient's troponins continued to rise and peaked at a value of 22. Patient was given 30 mg of ketorolac every 6 hours for pain as well as morphine 4 mg. Patient had noted significant improvement in his chest pain. However, the pain continued to come in intervals. Patient's outside throat culture report from [facility] urgent care, was positive for Streptococcus G and the patient was treated with amoxicillin for suspected pericarditis or rheumatic heart disease. Patient was seen by cardiology who recommended continued NSAID use as well as colchicine 0.6 mg twice a day. On repeat EKG the patient's ST elevations appear to be resolving. Patient noted improvement in his pain as troponins are trending down. Patient had a respiratory virus panel ordered, which was negative. Lyme disease, Santosh-Burkett virus and mycoplasma IgM are currently pending. Patient was found fit for discharge and was discharged with coarse seen twice a day as well as ibuprofen 4 mg 4 times a day. Patient is instructed to follow-up with his primary care provider as well as cardiology in 1 week. Patient instructed that he would likely need a repeat echocardiogram in 3-6 months. DISCHARGE MEDICATIONS: Please see below. ALLERGIES: Please see below. PHYSICAL EXAMINATION ON DISCHARGE: VITAL SIGNS: Please see below. GENERAL: Awake Alert, oriented, appears in no acute distress, lying comfortably in bed HEENT: Atraumatic, normocephalic. Eyes nonicteric. Trachea is midline. Mucous membranes are pink and moist. No conjunctival pallor NECK:. No palpable cervical, axillary or supraclavicular lymphadenopathy CARDIOVASCULAR EXAMINATION: Normal 1, S2, regular rate and rhythm. No clicks, rubs or murmurs RESPIRATORY EXAMINATION: Clear vesicular breath sounds bilaterally. Good respiratory effort. No wheezes, rhonchi or rales ABDOMINAL EXAMINATION:. Soft, nondistended, nontender to palpation in all 4 quadrants. No rebound tenderness or guarding EXTREMITIES:. No edema. Full and equal pulses in bilateral upper and lower extremities SKIN:. No rashes or areas of erythema NEUROLOGICAL EXAMINATION:. No focal neurological deficits PSYCHIATRIC EXAMINATION:. Mood and affect appear appropriate LABORATORY DATA: Please see below. IMAGING: PROCEDURE INFORMATION: Exam: CT Angiography Chest With Contrast Exam date and time: 09/02/2019 5:56 AM Clinical history: 33 years old, male; Chest pain; Type not specified; Additional info: Chest pain, eval for pericardial effusion TECHNIQUE: Imaging protocol: Computed tomographic angiography of the chest with intravenous contrast. 3D rendering: MIP reconstructed images were created and reviewed. Radiation optimization: All CT scans at this facility use at least one of these dose optimization techniques: automated exposure control; mA and/or kV adjustment per patient size (includes targeted exams where dose is matched to clinical indication); or iterative reconstruction. Contrast material: ISO; Contrast volume: 75 ml; Contrast route: AC; COMPARISON: CR Chest, 2 view PA, Lat 09/02/2019 4:37 AM FINDINGS: Pulmonary arteries: Normal. No pulmonary emboli. Aorta: Unremarkable. No aortic aneurysm. No aortic dissection. Lungs: Calcified granuloma in the right lower lobe. Mild bibasilar dependent atelectasis. Pleural space: Unremarkable. No pneumothorax. No pleural effusion. Heart: Unremarkable. No cardiomegaly. No pericardial effusion. Lymph nodes: Calcified right hilar lymph nodes. Bones/joints: Unremarkable. No acute fracture. Soft tissues: Unremarkable. IMPRESSION: No acute pulmonary embolic disease or thoracic aortic dissection. No significant pericardial effusion. Evidence of prior granulomatous disease. Electronically signed by: Steve Meng On 09/02/2019 06:37:57 AM Chest x-ray: Two views. History: Chest pain . Comparison study: No comparison study. . Findings: The lungs are well inflated and free of infiltrate. The pleural angles are sharp. The heart size is normal. Pulmonary vasculature is not increased. No significant bony abnormality is seen. Monitoring electrodes are seen. Impression: Negative chest x-ray. Electronically Signed by Armando Thayer MD 09/02/2019 08:13 A PROGNOSIS: Good ACTIVITY: Patient is to avoid strenuous exercise DIET:. As tolerated DISCHARGE PLAN: Patient is to be discharged home with follow-up with his primary care provider in one to 2 weeks. He is to follow-up with cardiology in 1 week. He is continue colchicine 0.6 mg 3 times a day for 3 months. He is to continue ibuprofen 400 mg 4 times a day decreasing by 200 mg every third day. He is return to the emergency department if his symptoms return or worsen DISPOSITION: 01 Home, Self-Care. DISCHARGE CONDITION: Stable. I saw and evaluated the patient. I agree with the findings and plan of care as documented in the documenters note. I spent 45 minutes coordinating this patient's discharge. Vital Signs/I&Os Vital Signs Date Time Temp Pulse Resp B/P (MAP) Pulse Ox O2 Delivery O2 Flow Rate FiO2 09/05/19 08:00 97.5 83 16 120/84 (96) 99 09/03/19 00:00 Room Air 09/02/19 20:00 1.0 I&O- Last 24 Hours up to 6 AM 09/05/19 06:00 Intake Total 640 ml Output Total 700 ml Balance -60 ml Laboratory Data Labs 24H Laboratory Tests 2 09/05/19 05:02: Total Creatine Kinase 58#, Creatine Kinase MB 2.4, Creatine Kinase MB Relative Index 4.14H, Troponin I 2.76#*H Microbiology Microbiology 09/03/19 Respiratory Virus Panel (PCR) ([facility]) - Final, Complete Discharge Medications Scheduled Amoxicillin (Amoxicillin) 500 Mg Capsule, 500 MG PO BID Colchicine (Colchicine) 0.6 Mg Tablet, 0.6 MG PO BID Ibuprofen (Ibuprofen) 400 Mg Tablet, 400 MG PO QID L.acidoph/L.bulg/B.bif/S.therm (Lety-Bid Caplet) 1 Each Tablet, 1 EA PO BIDWM Omeprazole Magnesium (Prilosec Otc) 20 Mg Tablet.dr, 20 MG PO DAILY Allergies Coded Allergies: POLLEN (Verified Allergy, Unknown, 09/02/19) red (food color) (Verified Adverse Reaction, Intermediate, indigestion WITH RED COLORED FOODS, 09/04/19) pt states he has no issue with red-colored medication COURTNEY PALOMINO DO Sep 05, 2019 11:50 MARY ALICE NAIR MD Sep 05, 2019 15:22
[2019-09-06 00:11] LABS: MYCOPLASMA PNEUMONIAE IgM <770 U/mL (0-769)
--- NOTE | 2019-09-07 08:10 | ECGEPIP ---
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
[2019-09-08 00:08] LABS: Lyme Disease IgG Ab 18 kDa Ban Present (.); Lyme Disease IgG Ab 23 kDa Ban Absent (.); Lyme Disease IgG Ab 28 kDa Ban Absent (.); Lyme Disease IgG Ab 30 kDa Ban Absent (.); Lyme Disease IgG Ab 39 kDa Ban Absent (.); Lyme Disease IgG Ab 41 kDa Ban Absent (.); Lyme Disease IgG Ab 45 kDa Ban Absent (.); Lyme Disease IgG Ab 58 kDa Ban Absent (.); Lyme Disease IgG Ab 66 kDa Ban Absent (.); Lyme Disease IgG Ab 93 kDa Ban Absent (.); Lyme Disease IgG West Blot Int Negative (.); Lyme Disease IgG/IgM Antibodie 0.97 ISR (0.00-0.90); Lyme Disease IgM Ab 23 kDa Ban Absent (.); Lyme Disease IgM Ab 39 kDa Ban Absent (.); Lyme Disease IgM Ab 41 kDa Ban Absent (.); Lyme Disease IgM Ab Quantitati <0.80 index (0.00-0.79); Lyme Disease IgM West Blot Int Negative (.)
== END 2019-09-05 10:38 | disposition home or self-care (01) | DRG 316 ==
LOC: M ED 03:00 → M ED INP 13:08 → M ICU 14:33 → OBSVTOIN 09-03 13:26
PROVIDERS: ADMIT Family Medicine; ATTEND Internal Medicine
DX: I30.9 Acute pericarditis, unspecified (principal); Z79.899 Other long term (current) drug therapy; Z88.8 Allergy status to other drugs, medicaments and biological substances